=== PATIENT | male | born 1985 | race Caucasian/White ===

== ENCOUNTER 2019-12-05 16:18 | Emergency (ER) | payer BC, SELFPAY ==
[2019-12-05 16:41] VITALS: BP 113/72; PULSE 77; RESP 16; TEMP 36.9; O2SAT 98
--- NOTE | 2019-12-05 18:08 | ED.LOWEXIN ---
HPI - Extremity Injury (Lower) General Chief Complaint: Extremity Injury, Lower <Domenic He PA-C - Last Filed: 12/05/19 18:13> Stated Complaint: fall with laceration lt knee <Domenic He PA-C - Last Filed: 12/05/19 18:13> Time Seen by Provider: 12/05/19 16:48 <Domenic He PA-C - Last Filed: 12/05/19 18:13> Source: patient <Domenic He PA-C - Last Filed: 12/05/19 18:13> Mode of arrival: ambulatory <TARAS Guerin Last Filed: 12/05/19 18:13> Limitations: no limitations <Domenic He PA-C - Last Filed: 12/05/19 18:13> History of Present Illness HPI Narrative: Patient is a 34-year-old male who presents to emergency department for evaluation of laceration of the anterior left knee that occurred just prior to arrival patient went into a sharp edge lacerating the knee patient presents with mild to moderate aching pain worse with activity and movement. Patient is unsure as to tetanus status. Patient denies radicular symptoms or paresthesias <Domenic He PA-C - Last Filed: 12/05/19 18:13> Related Data Home Medications: Home Medications Medication Instructions Recorded Confirmed aspirin [Adult Low Dose Aspirin] 12/05/19 <Domenic He PA-C - Last Filed: 12/05/19 18:13> Allergies/Adverse Reactions: Allergies Allergy/AdvReac Type Severity Reaction Status Date / Time No Known Allergies Allergy Verified 12/05/19 16:54 <Domenic He PA-C - Last Filed: 12/05/19 18:13> Review of Systems Review of Systems: All systems reviewed & are unremarkable except as noted in HPI and below <Domenic He PA-C - Last Filed: 12/05/19 18:13> [facility] Social History Social History: Social History (Updated 12/05/19 @ 18:11 by Domenic He PA-C) Smoking status: Never smoker Gender identity (if verbalized by the patient): Male <Domenic He PA-C - Last Filed: 12/05/19 18:13> Exam Narrative: Exam Narrative: GENERAL: Well-appearing, well-nourished, and in no acute distress. HEAD: Normocephalic, atraumatic. EYES: PERRLA and EOMI. ENT: Nares clear, no rhinorrhea or epistaxis. Mucous membranes moist. EXTREMITIES: Normal range of motion. No edema. SKIN: Warm, dry, no rash. Triangular flap laceration anterior right knee below the patella measuring 3 cm in length NEURO: No focal deficits. Alert and oriented x3. Neurovascularly intact PSYCH: Normal mood and affect. <TARAS Guerin Last Filed: 12/05/19 18:13> Course Course Emergency Course: Patient in the room in no distress aware of case findings treatment plan and diagnosis agreeing to follow-up as directed or to return if symptoms worsen or concerns patient's tetanus was updated <TARAS Guerin Last Filed: 12/05/19 18:13> Vital Signs Vital signs: Vital Signs Temperature 98.5 F 12/05/19 16:41 Pulse Rate 77 12/05/19 16:41 Respiratory Rate 16 12/05/19 16:41 Blood Pressure 113/72 12/05/19 16:41 Pulse Oximetry 98 12/05/19 16:41 Temperature 97.8 F 12/05/19 18:25 Pulse Rate 87 12/05/19 18:25 Respiratory Rate 18 12/05/19 18:25 Blood Pressure 132/76 12/05/19 18:25 Pulse Oximetry 100 12/05/19 18:25 <TARAS Guerin Last Filed: 12/05/19 18:13> Vital Signs Temperature 98.5 F 12/05/19 16:41 Pulse Rate 77 12/05/19 16:41 Respiratory Rate 16 12/05/19 16:41 Blood Pressure 113/72 12/05/19 16:41 Pulse Oximetry 98 12/05/19 16:41 Temperature 97.8 F 12/05/19 18:25 Pulse Rate 87 12/05/19 18:25 Respiratory Rate 18 12/05/19 18:25 Blood Pressure 132/76 12/05/19 18:25 Pulse Oximetry 100 12/05/19 18:25 <Claire Saucedo MD - Last Filed: 12/05/19 19:02> Procedures Laceration Laceration 1: Date: 12/05/19 <Domenic He PA-C - Last Filed: 12/05/19 18:13> Time: 18:12 <Domenic He PA-C - Last Filed: 12/05/19 18:1
[2019-12-05] MEDS: TETANUS,DIPHTHERIA,AC PERTUSSIS ADULT (0.5 ML) BOOSTRIX IM (18:19)
[2019-12-05 18:25] VITALS: BP 132/76; PULSE 87; RESP 18; TEMP 36.6; O2SAT 100
== END 2019-12-05 18:26 | disposition home or self-care (01) ==
PROVIDERS: Emergency Provider General Practice; PCP Internal Medicine
DX: S81.012A Laceration without foreign body, left knee, initial encounter (principal); Z23 Encounter for immunization; Z79.82 Long term (current) use of aspirin; W26.8XXA Contact with other sharp object(s), not elsewhere classified, initial encounter
CPT/HCPCS: 12002; 90471; 90715; 99282

== ENCOUNTER 2023-09-20 16:34 | Emergency (ER) | payer BC, SELFPAY ==
--- NOTE | ~2023-09-20 | CT_ITS ---
EXAMINATION: CT brain wo con DATE: 09/20/2023 17:30 INDICATION: Possible seizure yesterday evening. Transient alteration of awareness. TECHNIQUE: Computed tomography (CT) of the head was performed without intravenous contrast. The mA wa s adjusted according to patient size. Iterative reconstruction technique was employed. Exam dose: 60 5.33 mGy-cm total exam DLP. COMPARISON: None FINDINGS: No intracranial mass lesion or hemorrhage or cerebrovascular accident. No midline shift or mass effect. Normal ventricular size. No fracture or bone destruction of the cranial vault. The mastoid air cells and included paranasal sinuses are unremarkable. The orbital contents are unrem arkable. IMPRESSION: Normal examination Reviewed, dictated and finalized at [facility]. Reviewed, dictated and finalized at [facility]. IMPRESSION: Normal examination
[2023-09-20 16:37] VITALS: BP 133/83; PULSE 87; RESP 20; TEMP 36.2; O2SAT 99
--- NOTE | 2023-09-20 17:14 | ECG_ITS ---
SEE SCANNED COPY FOR CONFIRMED REPORT MTDD
--- NOTE | 2023-09-20 17:14 | ED.GENADULT ---
HPI - General Adult General Chief complaint: Unspecified Stated complaint: seizure like activity Time Seen by Provider: 09/20/23 17:14 Source: patient Mode of arrival: ambulatory Limitations: no limitations History of Present Illness HPI narrative: This is a 38-year-old male that presents to the emergency department for an episode that happened last night. Reports he was standing in his bedroom. His muscle suddenly locked up. Everything spasms and knee felt like he could not move. This lasted for several minutes. He called for his who helped him into his bed. Reports feeling mildly sore today, but otherwise well. Denies loss of consciousness, focal numbness or weakness. Related Data Home Medications Medication Instructions Recorded Confirmed aspirin 81 mg tablet,delayed 12/05/19 release (Adult Low Dose Aspirin) Allergies Allergy/AdvReac Type Severity Reaction Status Date / Time No Known Allergies Allergy Verified 12/05/19 16:54 Review of Systems Review of Systems: CONSTITUTIONAL: Denies fever CARDIOVASCULAR: Denies chest pain, palpitations RESPIRATORY: Denies dyspnea. GASTROINTESTINAL: Denies vomiting MUSCULOSKELETAL: Reports myalgia. NEUROLOGIC: Denies numbness, or weakness. All systems reviewed & are unremarkable except as noted in HPI and below PMFSH Past Medical History Medical History (Updated 09/20/23 @ 18:57 by Joann Howard PA-C) No active medical problems Social History Social History (Updated 09/20/23 @ 17:52 by Joann Howard PA-C) Smoking status: Never smoker Substance use: never Gender identity (if verbalized by the patient): Male Exam Narrative: GENERAL: Well-appearing, well-nourished, and in no acute distress. HEAD: Normocephalic, atraumatic. EYES: PERRLA and EOMI. ENT: Nares clear, no rhinorrhea or epistaxis. Mucous membranes moist. Oropharynx without tonsillar hypertrophy exudate or other lesions. Bilateral TMs pearly valiente non-bulging NECK: Supple. No adenopathy or masses. CHEST: Clear to auscultation. No respiratory distress. No wheezes rales or rhonchi HEART: Regular rate and rhythm. No murmur heard. Normal peripheral pulses. EXTREMITIES: Normal range of motion. No edema. Strength equal in bilateral upper and lower extremities (5/5) SKIN: Warm, dry, no rash. NEURO: No focal deficits. Alert and oriented x3. Cranial nerves 2-12 grossly intact PSYCH: Normal mood and affect Course Course Emergency Course: Patient updated on his workup and agrees with plan of care Vital Signs Vital signs: Vital Signs Temperature 97.1 F L 09/20/23 16:37 Pulse Rate 87 09/20/23 16:37 Respiratory Rate 20 09/20/23 16:37 Blood Pressure 133/83 09/20/23 16:37 Pulse Oximetry 99 09/20/23 16:37 Oxygen Delivery Room Air 09/20/23 16:37 Temperature 97.1 F L 09/20/23 16:37 Pulse Rate 87 09/20/23 16:37 Respiratory Rate 20 09/20/23 16:37 Blood Pressure 133/83 09/20/23 16:37 Pulse Oximetry 99 09/20/23 16:37 Oxygen Delivery Room Air 09/20/23 16:37 Medical Decision Making MDM Narrative Medical decision making narrative: Patient presents to the ER for an episode last night. Reports he all the sudden felt diffuse muscle spasm. This lasted several minutes and then resolved without intervention. Patient has been well since. Patient is currently neurologically intact. His vitals are stable. CBC and metabolic panel without concerning findings. Urine is normal. Drug screen is negative. CT brain without acute findings. EKG without concerning changes. Patient was updated on his workup and agrees with plan of care. Instructed to have close follow up with his PCP for further evaluation. He was given warnings to return to the ER Vital Signs Vital Signs: Vital Signs Temperature 97.1 F L 09/20/23 16:37 Pulse Rate 87 09/20/23 16:37 Respiratory Rate 09/20/23 16:37 Blood Pressure 133/83 09/20/23 16:37 Pulse Oximetry
[2023-09-20 17:55] LABS: Appearance Urine Clear (Clear); Basophils Percent Auto 0.6 % (0.2-1.2); Bilirubin Urine Negative (Negative); Blood Urine Negative (Negative); Color Urine Yellow (Yellow); Eosinophils Absolute Auto 0.2 K/mm3 (0-0.3); Eosinophils Percent Auto 2.5 % (0-4.4); Glucose Urine UA Negative (Negative); Hemoglobin 14.3 g/dL (14.0-18.0); Immature Granulocyte Absolute 0.02 K/mm3 (0.00-0.031); Immature Granulocyte Percent A 0.3 % (0-0.5); Ketones Urine Negative (Negative); Leukocyte Esterase Ur Negative LEU/UL (Negative); Lymphocytes Percent Auto 24.9 % (18.3-44.2); Mean Corpuscular Hemoglobin 30.9 pg (26-34); Mean Corpuscular Volume 90.7 fl (80-100); Monocytes Absolute Auto 0.9 K/mm3 (0.1-0.6); Monocytes Percent Auto 13.5 % (2.6-8.5); Neutrophils Percent Auto 58.2 % (45.5-73.1); Nitrate Urine Negative (Negative); Platelet Count Result 270 k/mm3 (150-375); Protein Urine Negative (Negative); Red Blood Count 4.63 M/mm3 (4.6-6.20); Red Cell Distribution Width 11.9 % (11.5-14.5); Urobilinogen Urine 0.2 mg/dL (<2.0); White Blood Count 6.8 K/mm3 (4.5-10.0); pH Urine 6.5 (5.0-9.0)
[2023-09-20 17:56] LABS: Add Urine Microscopic? NO; Specific Grav Ur 1.003 (1.001-1.035)
[2023-09-20 18:10] LABS: Ethanol < 10 mg/dL (<10)
[2023-09-20 18:11] LABS: Alanine Aminotransferase 23 U/L (6-50); Albumin Level 4.9 g/dL (3.5-5.1); Alkaline Phosphatase 76 U/L (38-126); Anion Gap 9 mmol/L (4-12); Aspartate Amino Transferase 32 U/L (17-59); Bilirubin,Total 0.6 mg/dL (0.2-1.3); Blood Urea Nitrogen 12 mg/dL (9-20); Calcium 9.6 mg/dL (8.4-10.2); Carbon Dioxide 24 mmol/L (22-30); Chloride 106 mmol/L (98-107); Creatine Kinase 168 U/L (55-170); Estimated CRCL calculation 97 ml/min; Estimated Glomerular Filt Rate > 60; Glucose 92 mg/dL (65-110); Potassium 3.7 mmol/L (3.4-5.0); Sodium 139 mmol/L (137-145)
[2023-09-20 18:20] LABS: Amphetamine Screen Urine Negative (Negative); Barbiturate Screen Urine Negative (Negative); Benzodiazepines Screen Urine Negative (Negative); Cannabinoid Screen Urine Negative (Negative); Cocaine Screen Urine Negative (Negative); Methadone Screen Urine Negative (Negative); Opiate Screen Urine Negative (Negative); Phencyclidine Screen Urine Negative (Negative)
[2023-09-20 18:57] VITALS: BP 135/76; PULSE 85; RESP 19; TEMP 36.8; O2SAT 99
== END 2023-09-20 19:22 | disposition home or self-care (01) ==
PROVIDERS: Emergency Provider Physician Assistant; PCP Internal Medicine
DX: R40.4 Transient alteration of awareness (principal); Z79.82 Long term (current) use of aspirin
CPT/HCPCS: 36415; 70450; 80053; 80307; 81003; 82550; 85025; 93005; 99284